=== PATIENT | female | born 1970 | race Hispanic/Latino ===

== ENCOUNTER 2022-02-24 15:42 | Emergency (ER) | payer SELFPAY ==
[2022-02-24 17:13] LABS: SARS-COV-2 RT PCR NEGATIVE (NEGATIVE)
--- NOTE | 2022-02-24 17:26 | RAD REPORT ---
EXAM DESCRIPTION: RAD - Chest Single View - 02/24/2022 5:20 pm CLINICAL HISTORY: COUGH Chest pain. COMPARISON: No comparisons FINDINGS: Portable technique limits examination quality. The lungs are grossly clear. The heart is normal in size. No displaced fractures. IMPRESSION: No acute intrathoracic process suspected.
--- NOTE | 2022-02-24 17:49 | ER ---
Nurse's Notes [facility] Name: Jaylene Bay Age: 51 yrs Sex: Female : 1970 Arrival Date: 02/24/2022 Time: 15:44 Bed IW7 Private MD: Diagnosis: Acute upper respiratory infection, unspecified Presentation: 02/24 15:54 Chief complaint: Patient states: Cough, Congestion, N/V/D X 1 week. Coronavirus screen: ld1 At this time, the client does not indicate any symptoms associated with coronavirus-19. Ebola Screen: No symptoms or risks identified at this time. Initial Sepsis Screen: Does the patient meet any 2 criteria? No. Patient's initial sepsis screen is negative. Does the patient have a suspected source of infection? No. Patient's initial sepsis screen is negative. Risk Assessment: Do you want to hurt yourself or someone else? Patient reports no desire to harm self or others. Onset of symptoms was February 24, 2022. 15:54 Method Of Arrival: Ambulatory ld1 15:54 Acuity: LALA 4 ld1 Triage Assessment: 15:55 General: Appears in no apparent distress. comfortable, Behavior is calm, cooperative, ld1 appropriate for age. Pain: Denies pain. EENT: No signs and/or symptoms were reported regarding the EENT system. Neuro: Level of Consciousness is awake, alert, obeys commands, Oriented to person, place, time, situation. Cardiovascular: Capillary refill < 3 seconds Patient's skin is warm and dry. Respiratory: Airway is patent Respiratory effort is even, unlabored. GI: Abdomen is flat, non-distended. : No signs and/or symptoms were reported regarding the genitourinary system. Derm: No signs and/or symptoms reported regarding the dermatologic system. Musculoskeletal: No signs and/or symptoms reported regarding the musculoskeletal system. Historical: - Allergies: 15:55 No Known Allergies; ld1 - PMHx: 15:55 Hypertensive disorder; ld1 - PSHx: 15:55 None; ld1 - Immunization history:: Adult Immunizations up to date, Client reports receiving the 2nd dose of the Covid vaccine. - Social history:: Smoking status: Patient denies any tobacco usage or history of. Patient/guardian denies using alcohol. Vital Signs: 15:54 Pulse 77; Resp 18; Temp 98.6(TE); Pulse Ox 100% on R/A; Weight 89.36 kg; Height 5 ft. 4 ld1 in. (162.56 cm); Pain 0/10; 15:57 BP 143 / 73; ld1 15:54 Body Mass Index 33.82 (89.36 kg, 162.56 cm) ld1 ED Course: 15:44 Patient arrived in ED. as 15:55 Triage completed. ld1 15:55 Arm band placed on right wrist. ld1 15:58 [facility] Evans [facility] 15:58 Keon Couch MD is Attending Physician. 7 16:05 COVID-19/FLU A+B Sent. ld1 17:22 XRAY Chest (1 view) In Process Unspecified. EDMS Administered Medications: No medications were administered Outcome: 17:48 Discharge ordered by . 7 18:07 Discharged to home ambulatory. ld1 18:07 Condition: good 18:07 Discharge instructions given to patient, Instructed on discharge instructions, follow up and referral plans. medication usage, Demonstrated understanding of instructions, follow-up care, medications, Prescriptions given X 3. 18:08 Patient left the ED. ld1 Signatures: Dispatcher [employer] EDMS Dayan Figueroa Lauren RN RN ld1 Luly Evans FNP DRAMATIC DIRECTOR [facility] Corrections: (The following items were deleted from the chart) 15:55 15:54 Pulse 77bpm; Resp 18bpm; Pulse Ox 100% RA; Temp 98.6F Temporal; 89.36 kg; Height ld1 5 ft. 4 in.; BMI: 33.8; Pain 0/10; ld1 15:56 15:55 PMHx: None; ld1 ld1
--- NOTE | 2022-02-24 17:49 | EDPHYS ---
Physician Documentation [facility] Name: Jaylene Bay Age: 51 yrs Sex: Female : 1970 Arrival Date: 02/24/2022 Time: 15:44 Bed IW7 Private MD: ED Physician Keon Couch HPI: 02/24 16:05 This 51 yrs old Female presents to ER via Ambulatory with complaints of Chest jh7 Congestion, Nausea, Diarrhea. 16:05 Onset: The symptoms/episode began/occurred 1 week(s) ago. Patient reports cough, jh7 congestion, diarrhea, and intermittent nausea and vomiting for 1 week. The patient's has similar symptoms. She reports that she needs a work note.. Historical: - Allergies: 15:55 No Known Allergies; ld1 - PMHx: 15:55 Hypertensive disorder; ld1 - PSHx: 15:55 None; ld1 - Immunization history:: Adult Immunizations up to date, Client reports receiving the 2nd dose of the Covid vaccine. - Social history:: Smoking status: Patient denies any tobacco usage or history of. Patient/guardian denies using alcohol. ROS: 16:05 Constitutional: Negative for fever, chills, and weight loss, Eyes: Negative for injury, jh7 pain, redness, and discharge, Neck: Negative for injury, pain, and swelling, Cardiovascular: Negative for chest pain, palpitations, and edema, Back: Negative for injury and pain, MS/Extremity: Negative for injury and deformity, Skin: Negative for injury, rash, and discoloration, Neuro: Negative for headache, weakness, numbness, tingling, and seizure. 16:05 ENT: Positive for nasal discharge. 16:05 Respiratory: Positive for cough, Negative for shortness of breath, wheezing. 16:05 Abdomen/GI: Positive for nausea and vomiting, diarrhea, Negative for abdominal pain, constipation. 16:05 All other systems are negative. Exam: 16:05 Constitutional: This is a well developed, well nourished patient who is awake, alert, jh7 and in no acute distress. Head/Face: Normocephalic, atraumatic. Neck: Trachea midline, no thyromegaly or masses palpated, and no cervical lymphadenopathy. Supple, full range of motion without nuchal rigidity, or vertebral point tenderness. No Meningismus. Cardiovascular: Regular rate and rhythm with a normal S1 and S2. No gallops, murmurs, or rubs. Normal PMI, no JVD. No pulse deficits. Respiratory: Lungs have equal breath sounds bilaterally, clear to auscultation and percussion. No rales, rhonchi or wheezes noted. No increased work of breathing, no retractions or nasal flaring. Abdomen/GI: Soft, non-tender, with normal bowel sounds. No distension or tympany. No guarding or rebound. No evidence of tenderness throughout. Back: No spinal tenderness. No costovertebral tenderness. Full range of motion. Skin: Warm, dry with normal turgor. Normal color with no rashes, no lesions, and no evidence of cellulitis. MS/ Extremity: Pulses equal, no cyanosis. Neurovascular intact. Full, normal range of motion. Neuro: Awake and alert, GCS 15, oriented to person, place, time, and situation. Normal gait. 16:05 ENT: Nose: nasal drainage, and is seen coming from both nares, that is clear, Posterior pharynx: post nasal drainage. Vital Signs: 15:54 Pulse 77; Resp 18; Temp 98.6(TE); Pulse Ox 100% on R/A; Weight 89.36 kg; Height 5 ft. 4 ld1 in. (162.56 cm); Pain 0/10; 15:57 BP 143 / 73; ld1 15:54 Body Mass Index 33.82 (89.36 kg, 162.56 cm) ld1 MDM: 15:58 Patient medically screened. [facility] 17:40 Differential diagnosis: viral Infection, URI, bronchitis, pneumonia. Data reviewed: [facility] vital signs, nurses notes, radiologic studies, plain films. Data interpreted: Pulse oximetry: is 100 %. Interpretation: normal. Counseling: I had a detailed discussion with the patient and/or guardian regarding: the historical points, exam findings, and any diagnostic results supporting the discharge/admit diagnosis, to return to the emergency department if symptoms worsen or persist or if there are any questions or concerns that arise at home. 02/24 15:57 Order name: COVID-19/FLU A+B; Complete Time: 17:22 ld1 02/24 16:02 Order name: XRAY Chest (1 view); Complete Time: 17:35 [facility] Administered Medications: No medications were administered Disposition Summary: 02/24/22 17:48 Discharge Ordered Location: Home [facility] Problem: new [facility] Symptoms: are unchanged [facility] Condition: Stable [facility] Diagnosis - Acute upper respiratory infection, unspecified [facility] Followup: [facility] - With: Private Physician - When: 2 - 3 days - Reason: Recheck today's complaints Discharge Instructions: - Discharge Summary Sheet 7 - Upper Respiratory Infection, Adult 7 - Viral Respiratory Infection [facility] Forms: - Medication Reconciliation Form 7 - Thank You Letter 7 - Work release form ld1 Prescriptions: - ProAir HFA 90 mcg/actuation Inhalation HFA aerosol inhaler - inhale 2 puff by INHALATION route every 4-6 hours As needed; 1 Inhaler; [facility] Refills: 0, Product Selection Permitted - ondansetron 4 mg Oral tablet,disintegrating - place 1 tablet by TRANSLINGUAL route 4 times per day As needed; 20 tablet; [facility] Refills: 0, Product Selection Permitted - Tessalon Perles 100 mg Oral Capsule - take 1 capsule by ORAL route every 8 hours As needed; 15 capsule; Refills: 0, [facility] Product Selection Permitted Addendum: 02/27/2022 08:00 Co-signature as Attending Physician, Keon Couch MD I agree with the assessment and c baez plan of care. Signatures: Dispatcher [employer] EDKeon Morgan MD MD cha Dibbern, Lauren, RN RN ld1 Luly Evans, BOWLING BALL GRADER B[employer]ING [employer]ALL GRADER 7 Corrections: (The following items were deleted from the chart) 02/24 15:56 15:55 PMHx: None; ld1 ld1
[2022-02-24 18:18] VITALS: BP 143/73; TEMP 98.6; O2SAT 100
== END 2022-02-24 18:08 | disposition home or self-care (01) ==
LOC: ER 15:42
DX: J06.9 Acute upper respiratory infection, unspecified (principal); Z20.822 Contact with and (suspected) exposure to COVID-19
CPT/HCPCS: 0240U; 71045; 99283

== ENCOUNTER → 2023-05-18 | Emergency (ER) | payer BC, OTHER ==
--- OUTSIDE RECORDS SUMMARY | 2023-05-18 12:16 | XMS REPORT | Continuity of Care Document ---
Author Name Unknown Address [address] [facility]. [address] [place] [address] [facility] thconnect Address [address] [facility]. [address] [place] [address] Care Team Providers Care Vacuum Pan Tender Name Role Phone Unavailable Unavailable Unavailable Payers Payer Name Policy Type Policy Number Effective Date Expirati on Date Source Allergies, Adverse Reactions, Alerts Allergy Name Allergy Type Status Severity Reaction(s) Onset Date Inactive Date Treating Clinician Comments Source No Known Allergie s DA Active U 09-26 00:00: 00 [facility] Encounters Start Date/Time End Date/Time Encounter Type Admission Type Attending Clinicians Care Facility Care Department Encounter ID Source 2022-08-15 15:22:52 2022-08-15 15:22:52 Outpatient [facility] [id number] Etienne Sheehan Results Test Description Test Time Test Comments Results Result Co mments Source CBC W/AUTO [id number] 16:46:00* Test Item Value Reference Range Interpretation Comme nts WHITE BLOOD CELL (test code = WBC) 6.76 x10 3/uL 4.80-10.80 N RED BLOOD CELL (test code = RBC) 3.88 x10 6/uL 4.2-5.4 L HEMOGLOBIN (test code = HGB) 8.5 G/DL 12.0-16.0 L HEMATOCRIT (test code = HCT) 28.3 % 37-47 L MEAN CELL VOLUME (test code = MCV) 72.9 FL 81-99 L MEAN CELL HGB (test code = MCH) 21.9 PG 27-31 L MEAN CELL HGB CONCENTRATION (test code = MCHC) 30.0 G/DL 33-37 L RED CELL DISTRIBUTION WIDTH (test code = RDW) 17.4 % 11.5-14.5 H PLATELET COUNT (test code = PLT) 245 x10 3/uL 150-450 N MEAN PLATELET VOLUME (test c ode = MPV) 10.1 FL 7.4-10.4 N NEUTROPHIL % (test code = NT%) 60.6 % 42-86 N LYMPHOCYTE % (test code = LY%) 28.3 % 24-44 N MONOCYTE % (test code = MO%) 9.3 % 0.0-4.0 H EOSINOPHIL % (test code = EO%) 1.5 % 0.0-2.7 N BASOPHIL % (test code = BA%) 0.3 % 0.0-0.5 N NEUTROPHIL # (test code = NT#) 4.10 x10 3/uL 1.8-7.7 N LYMPHOCYTE # (test code = LY#) 1.91 x10 3/uL 1.0-4.8 N MONOCYTE # (test code = MO#) 0.63 x10 3/uL 0.0-0.8 N EOSINOPHIL # (test code = EO#) 0.10 x10 3/uL 0.0-0.5 N BASOPHIL # (test code = BA#) 0.02 x10 3/uL 0.0-0.2 N MANUAL DIFF REQUIRED (test c ode = MDIFF) SCAN PLT_RBC TECH REVIEW RBC [id number] 16:46:00* Test Item Value Reference Range Interpretation Comme nts RBC MORPHOLOGY COMMENT (test code = RBCM) See Comment HYPOCHROMIA (test code = HYPO) 1+ POIKILOCYTOSIS (test code = POIK) Occ ANISOCYTOSIS (test code = ANISO) 2+ MICROCYTOSIS (test code = MICR) 1+ TARGET CELLS (test code = TGT) Occ OVALOCYTES (test code = OVAL) Occ PLATELET [id number] 16:46:00* Test Item Value Reference Range Interpretation Comme nts PLATELET ESTIMATE (test code = PLTEST) Norm ADEQ PLATELET [id number] 16:46:00* Test Item Value Reference Range Interpretation Comme nts PLATELET MORPHOLOGY (test co de = PLTMORPH) Normal Normal CBC W/AUTO [id number] 16:40:00* Test Item Value Reference Range Interpretation Comme nts WHITE BLOOD CELL (test code = WBC) 6.76 x10 3/uL 4.80-10.80 N RED BLOOD CELL (test code = RBC) 3.88 x10 6/uL 4.2-5.4 L HEMOGLOBIN (test code = HGB) 8.5 G/DL 12.0-16.0 L HEMATOCRIT (test code = HCT) 28.3 % 37-47 L MEAN CELL VOLUME (test code = MCV) 72.9 FL 81-99 L MEAN CELL HGB (test code = MCH) 21.9 PG 27-31 L MEAN CELL HGB CONCENTRATION (test code = MCHC) 30.0 G/DL 33-37 L RED CELL DISTRIBUTION WIDTH (test code = RDW) 17.4 % 11.5-14.5 H PLATELET COUNT (test code = PLT) 245 x10 3/uL 150-450 N MEAN PLATELET VOLUME (test c ode = MPV) 10.1 FL 7.4-10.4 N NEUTROPHIL % (test code = NT%) % 42-86 N LYMPHOCYTE % (test code = LY%) % 24-44 N MONOCYTE % (test code = MO%) % 0.0-4.0 H EOSINOPHIL % (test code = EO%) % 0.0-2.7 N BASOPHIL % (test code = BA%) % 0.0-0.5 N NEUTROPHIL # (test code = NT#) x10 3/uL 1.8-7.7 N LYMPHOCYTE # (test code = LY#) x10 3/uL 1.0-4.8 N MONOCYTE # (test code = MO#) x10 3/uL 0.0-0.8 N EOSINOPHIL # (test code = EO#) x10 3/uL 0.0-0.5 N BASOPHIL # (test code = BA#) x10 3/uL 0.0-0.2 N MANUAL DIFF REQUIRED (test c ode = MDIFF) SCAN PLT_RBC TECH REVIEW RBC [id number] 16:40:00* Test Item Value Reference Range Interpretation Comme nts RBC MORPHOLOGY COMMENT (test code = RBCM) See Comment HYPOCHROMIA (test code = HYPO) 1+ POIKILOCYTOSIS (test code = POIK) Occ ANISOCYTOSIS (test code = ANISO) 2+ MICROCYTOSIS (test code = MICR) 1+ TARGET CELLS (test code = TGT) Occ OVALOCYTES (test code = OVAL) Occ PLATELET [id number] 16:40:00* Test Item Value Reference Range Interpretation Comme nts PLATELET ESTIMATE (test code = PLTEST) Norm ADEQ PLATELET [id number] 16:40:00* Test Item Value Reference Range Interpretation Comme nts PLATELET MORPHOLOGY (test co de = PLTMORPH) Normal Normal CBC W/AUTO [id number] 16:15:00* Test Item Value Reference Range Interpretation Comme nts WHITE BLOOD CELL (test code = WBC) 6.76 x10 3/uL 4.80-10.80 N RED BLOOD CELL (test code = RBC) 3.88 x10 6/uL 4.2-5.4 L HEMOGLOBIN (test code = HGB) 8.5 G/DL 12.0-16.0 L HEMATOCRIT (test code = HCT) 28.3 % 37-47 L MEAN CELL VOLUME (test code = MCV) 72.9 FL 81-99 L MEAN CELL HGB (test code = MCH) 21.9 PG 27-31 L MEAN CELL HGB CONCENTRATION (test code = MCHC) 30.0 G/DL 33-37 L RED CELL DISTRIBUTION WIDTH (test code = RDW) 17.4 % 11.5-14.5 H PLATELET COUNT (test code = PLT) 245 x10 3/uL 150-450 N MEAN PLATELET VOLUME (test c ode = MPV) 10.1 FL 7.4-10.4 N NEUTROPHIL % (test code = NT%) % 42-86 N LYMPHOCYTE % (test code = LY%) % 24-44 N MONOCYTE % (test code = MO%) % 0.0-4.0 H EOSINOPHIL % (test code = EO%) % 0.0-2.7 N BASOPHIL % (test code = BA%) % 0.0-0.5 N NEUTROPHIL # (test code = NT#) x10 3/uL 1.8-7.7 N LYMPHOCYTE # (test code = LY#) x10 3/uL 1.0-4.8 N MONOCYTE # (test code = MO#) x10 3/uL 0.0-0.8 N EOSINOPHIL # (test code = EO#) x10 3/uL 0.0-0.5 N BASOPHIL # (test code = BA#) x10 3/uL 0.0-0.2 N MANUAL DIFF REQUIRED (test c ode = MDIFF) SCAN PLT_RBC TECH REVIEW RBC [id number] 16:15:00* Test Item Value Reference Range Interpretation Comme nts RBC MORPHOLOGY COMMENT (test code = RBCM) PLATELET [id number] 16:15:00* Test Item Value Reference Range Interpretation Comme nts PLATELET ESTIMATE (test code = PLTEST) ADEQ CBC W/AUTO [id number] 16:14:00* Test Item Value Reference Range Interpretation Comme nts WHITE BLOOD CELL (test code = WBC) 6.76 x10 3/uL 4.80-10.80 N RED BLOOD CELL (test code = RBC) 3.88 x10 6/uL 4.2-5.4 L HEMOGLOBIN (test code = HGB) 8.5 G/DL 12.0-16.0 L HEMATOCRIT (test code = HCT) 28.3 % 37-47 L MEAN CELL VOLUME (test code = MCV) 72.9 FL 81-99 L MEAN CELL HGB (test code = MCH) 21.9 PG 27-31 L MEAN CELL HGB CONCENTRATION (test code = MCHC) 30.0 G/DL 33-37 L RED CELL DISTRIBUTION WIDTH (test code = RDW) 17.4 % 11.5-14.5 H PLATELET COUNT (test code = PLT) 245 x10 3/uL 150-450 N MEAN PLATELET VOLUME (test c ode = MPV) 10.1 FL 7.4-10.4 N NEUTROPHIL % (test code = NT%) % 42-86 N LYMPHOCYTE % (test code = LY%) % 24-44 N MONOCYTE % (test code = MO%) % 0.0-4.0 H EOSINOPHIL % (test code = EO%) % 0.0-2.7 N BASOPHIL % (test code = BA%) % 0.0-0.5 N NEUTROPHIL # (test code = NT#) x10 3/uL 1.8-7.7 N LYMPHOCYTE # (test code = LY#) x10 3/uL 1.0-4.8 N MONOCYTE # (test code = MO#) x10 3/uL 0.0-0.8 N EOSINOPHIL # (test code = EO#) x10 3/uL 0.0-0.5 N BASOPHIL # (test code = BA#) x10 3/uL 0.0-0.2 N MANUAL DIFF REQUIRED (test c ode = MDIFF) SCAN PLT_RBC TECH REVIEW RBC [id number] 16:14:00* Test Item Value Reference Range Interpretation Comme nts RBC MORPHOLOGY COMMENT (test code = RBCM) PLATELET [id number] 16:14:00* Test Item Value Reference Range Interpretation Comme nts PLATELET ESTIMATE (test code = PLTEST) ADEQ Notes Date/Time Note Provider Source 2018-09-26 15:53:00 [id number] 3:00 [facility] PROVIDER REPORTREPORT#:[id number] REPORT STATUS: SignedDATE:09/26/18 TIME: 1552 PATIENT: LEIGH ANN PALMER UNIT #: [id number]#: [id number] ROOM/BED:AGE: 48 SEX: F PCP PHYS: No Primary or Family PhysicianSERVICE AUTHOR: Jeimy Nuno DO * ALL edits or amendments must be made on the electronic/computer document * HPI- Female GeneralConfirmed Patient YesInitial Greet Date/Time 09/26/18 1552 PresentationChief Complaint Vaginal bleedingHx Obtained From Patient)( Sudden in Onset? YesOnset Occurred Weeks agoSymptom Duration Since onsetProgression since Onset UnchangedCaused by No trauma by historyQuality PainfulRadiationNo: Does not radiate. Severity: Onset ModerateSeverity: Current No pain currentlyAssociated withDenies: Abdominal pain. Associated Other Pt denies other symptomsExacerbated by NothingRelieved by Nothing Free Text HPI NotesFree Text HPI Notes48 YO F with no significant PMHx presents to ED with c/o abnormal vaginal bleeding associating with her menstrual cycle. States her menstrual cycle lasts up to 3 days but has continued on for 11 days. On her normal periods, she changes 2 pads on her heavy days. Patient states she's been changing more pads than usual these past days. She does not have an TITLE SPECIALIST. Portions of this section were scribed by Luly Adair on 09/26/18 at 1608 Review of Systems ROS StatementsAll systems rev neg except as marked. Focused Review of SystemsConstitutionalDenies: Chills, Fever, Lethargy. Ears/Nose/ThroatDenies: Earache bilat, Nasal congestion, Sore throat. GIDenies: Abdominal pain, Diarrhea, Nausea, Vomiting. FemaleDenies: Dysuria. MusculoskeletalDenies: Back pain, Thoracic pain. SkinDenies: Abrasion, Ulceration. NeurologicDenies: Headache. Portions of this section were scribed by Luly Adair on 09/26/18 at 1559 Past Medical History - AdultStated Complaint PERIOD FOR 13 DAYS AND NOT MY NORMAL PERIODAllergiesCoded Allergies:No Known Allergies (09/26/18) Review of Nursing Notes Rev avail, and agreeSmoking status for patients 13 years old or older: Current every day smoker Portions of this section were scribed by Luly Adair on 09/26/18 at 1559 Physical Exam Vital SignsVital SignsFirst Documented: Result Date Time Pulse Ox 100 / 1549 B/P 150/68 / 1549 B/P Mean 95 /03 1549 O2 Delivery Room air / 1549 Temp 36.6 07/03 1549 Pulse 61 07/ 1549 Resp 17 / 1549 Last Documented: Result Date Time Pulse Ox 100 07/03 1549 B/P 150/68 07/03 1549 B/P Mean 95 07/03 1549 O2 Delivery Room air / 1549 Temp 36.6 07/03 1549 Pulse 61 07/ 1549 Resp 17 / 1549 Review of Vital Signs Reviewed Focused PEGeneral/Const General/Const Awake, AlertResp/Chest Respiratory/Chest Atraumatic, Breath sounds NL, Breath sounds = bilat, No respiratory distress, No rales, No rhonchi, No wheezing, No retractionsCardiovascular Cardiovascular Heart rate NL, Regular rhythm, Heart sounds NL, No gallop, No murmursAbdomen/GI Abdomen/GI Soft, Non-tenderMS Back Back Inspection NLSkin Skin Color NLGenitourinary General Patient refused exam Additional PEMS Head Head NormocephalicEyes Eyes PERRL, EOMIEars/Nose/Throat Ears/Nose/Throat Airway patent, Mucous membranes moist, No peritonsillar abscess Portions of this section were scribed by Luly Adair on 09/26/18 at 1608 Interpretation Diagnostics Lab Results InterpretationResultsLaboratory Tests 09/26/18 1603:[Embedded Image Not Available]Laboratory Tests: 09/26 1603 Chemistry TSH (0.42 - 5.47) 1.34 Hematology WBC (4.80 - 10.80 x10 3/uL) 6.76 RBC (4.2 - 5.4 x10 6/uL) 3.88 L Hgb (12.0 - 16.0 G/DL) 8.5 L Hct (37 - 47 %) 28.3 L MCV (81 - 99 FL) 72.9 L MCH (27 - 31 PG) 21.9 L MCHC (33 - 37 G/DL) 30.0 L RDW Coeff of Claudio (11.5 - 14.5 %) 17.4 H Plt Count (150 - 450 x10 3/uL) 245 MPV (7.4 - 10.4 FL) 10.1 Neut % (Auto) (42 - 86 %) 60.6 Lymph % (Auto) (24 - 44 %) 28.3 [place] % (Auto) (0.0 - 4.0 %) 9.3 H Eos % (Auto) (0.0 - 2.7 %) 1.5 Baso % (Auto) (0.0 - 0.5 %) 0.3 Eos # (Auto) (0.0 - 0.5 x10 3/uL) 0.10 Baso # (Auto) (0.0 - 0.2 x10 3/uL) 0.02 Absolute Neuts (auto) (1.8 - 7.7 x10 3/uL) 4.10 Absolute Lymphs (auto) (1.0 - 4.8 x10 3/uL) 1.91 Absolute Monos (auto) (0.0 - 0.8 x10 3/uL) 0.63 Add Manual Diff (TECH REVIEW) SCAN PLT_RBC Platelet Estimate (ADEQ) Norm Plt Morphology Comment (Normal) Normal RBC Morphology See Comment Hypochromasia 1+ Poikilocytosis Occ Anisocytosis 2+ Microcytosis 1+ Target Cells Occ Ovalocytes Occ Point of Care TestingPulse Oximetry Pulse Ox % 100 On: Room air Interpretation Interpreted by me, Pulse oximetry normal Time 1549 Portions of this section were scribed by Luly Adair on 09/26/18 at 1607 Re-Evaluation MDM Free Text MDM NotesFree Text MDM Notespt refused pelvic exam and transport for ultrasound despite discussion of the importance of these exams. She says she will follow up w/ gynecology. I have started Provera to avoid estrogen d/2 her age and smoking. We discussed the risks of use, which are mostly care home use risks. Patient Discharge Departure Vital Signs/ConditionVital SignsFirst Documented: Result Date Time Pulse Ox 100 07/ 1549 B/P 150/68 07/03 1549 B/P Mean 95 07/03 1549 O2 Delivery Room air 07/03 1549 Temp 36.6 07/03 1549 Pulse 61 07/03 1549 Resp 17 07/03 1549 Last Documented: Result Date Time Pulse Ox 100 07/03 1549 B/P 150/68 07/03 1549 B/P Mean 95 07/03 1549 O2 Delivery Room air 07/03 1549 Temp 36.6 07/03 1549 Pulse 61 07/03 1549 Resp 17 07/03 1549 All vital signs available at the time of this entry have been reviewed. Condition Stable Clinical ImpressionClinical ImpressionPrimary Impression: Dysfunctional uterine bleedingSecondary Impressions: Anemia Disposition DecisionDischarge )( Discharged to Home Yes )( Time 1721 )( Date 09/26/18 Discharge/Care PlanCounseled Regarding Diagnosis, Lab results, Prescriptions, Need for follow-up, When to return to EDPrescriptionsprovera, iron Discharge NoteI have spoken with the patient and/or caregivers. I have explained the patient'scondition, diagnoses and treatment plan based on the information available to meat this time. I have answered the patient's and/or caregiver's questions and addressed any concerns. The patient and/or caregivers have as good an understanding of the patient's diagnosis, condition and treatment plan as can beexpected at this point. The vital signs have been stable. The patient's condition is stable and appropriate for discharge from the emergency department. The patient will pursue further outpatient evaluation with the primary care physician or other designated or consulting physician as outlined in the discharge instructions. The patient and/or caregivers are agreeable to this planof care and follow-up instructions have been explained in detail. The patient and/or caregivers have received these instructions in written format and have expressed an understanding of the discharge instructions. The patient and/or caregivers are aware that any significant change in condition or worsening of symptoms should prompt an immediate return to this or the closest emergency department or a call to 911. Supervising Physician Note Scribe StatementLuly Adair, 09/26/18 1559, scribing for and in the presence of [Dr. Nuno].Signed By: Luly Adair, 09/26/18 1551 Provider Scribed StatementI personally performed the services described in this documentation and reviewedthe documentation that was dictated to the scribe(s) in my presence, and it accurately records my words and actions. Jeimy Nuno, 09/26/18 Portions of this section were scribed by Luly Adair on 09/26/18 at 1559 at 1635RPT #:[id number] OF REPORTSouth [facility] department [id number]:53:[id number] ilable for patient [id number]:[id number]:[address]
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
[2023-05-18 16:40] VITALS: TEMP 99
[2023-05-18 16:59] VITALS: BP 136/82; O2SAT 97
== END ==
LOC: ER 12:12
DX: S16.1XXA Strain of muscle, fascia and tendon at neck level, initial encounter (principal); S46.811A Strain of other muscles, fascia and tendons at shoulder and upper arm level, right arm, initial encounter; V49.40XA Driver injured in collision with unspecified motor vehicles in traffic accident, initial encounter; Z72.0 Tobacco use
CPT/HCPCS: 72040